=== PATIENT | female | born 1970 | race Caucasian/White ===

== ENCOUNTER 2021-09-08 19:15 | Emergency (ER) | payer MEDICAID ==
[~2021-09-08] VITALS: Ht 165.1 cm; Wt 69.4 kg
[2021-09-08 19:44] VITALS: BP 103/59
[2021-09-08] MEDS ORDERED: MAGNESIUM/ALUMINUM HYDROXIDE/SIMETHICONE 30ML UDC PO STA (20:54)
[2021-09-08 21:23] LABS: BASOPHILS % 0.1 % (0.0-2.0); EOSINOPHILS % 0.7 % (0.0-5.0); HEMATOCRIT. 36.5 % (36.0-48.0); HEMOGLOBIN. 12.2 g/dL (12.0-16.0); LYMPHOCYTES % 12.1 % (20.0-50.0); MEAN CORPUSCULAR HEMOGLOBIN 31.2 pg (28.0-32.0); MEAN CORPUSCULAR VOLUME 93.4 fL (81.0-99.0); MEAN PLATELET VOLUME 8.6 fl (7.4-10.4); MONOCYTES % 6.6 % (2.0-8.0); NEUTROPHILS % 80.5 % (40.0-76.0); PLATELET 239 x1000/uL (130-400); RED BLOOD CELL COUNT 3.91 mill/uL (4.2-5.4)
[2021-09-08] MEDS ORDERED: KETOROLAC 30MG/ML VIAL IM ONE (21:30)
[2021-09-08 21:31] LABS: CHLORIDE 108 mEq/L (98-107)
[2021-09-08 21:36] LABS: CLARITY URINE CLEAR (CLEAR); COLOR URINE YELLOW (YELLOW); KETONES URINE TRACE (NEGATIVE); LEUKOCYTE ESTERASE URINE 1+ (NEGATIVE); NITRITE URINE POSITIVE (NEGATIVE); OCCULT BLOOD URINE TRACE (NEGATIVE); PROTEIN URINE NEGATIVE (NEGATIVE); SPECIFIC GRAVITY URINE 1.017 (1.005-1.030)
[2021-09-08] MEDS ORDERED: NITROFURANTOIN 100MG M/M CAPSULE PO NR (22:15)
[2021-09-08] MEDS ORDERED: NITR-87 MT (23:06)
== END 2021-09-08 23:25 | disposition home or self-care (01) ==
LOC: ER 19:15
DX: N39.0 Urinary tract infection, site not specified (principal); K29.70 Gastritis, unspecified, without bleeding; K80.80 Other cholelithiasis without obstruction
CPT/HCPCS: 36415; 76705; 80053; 81003; 81025; 83690; 85025; 93005; 99285; J1885